=== PATIENT | male | born 1970 | race Hispanic/Latino ===

== ENCOUNTER 2018-12-19 11:50 | Emergency (ER) | payer SELFPAY ==
[2018-12-19 12:12] VITALS: BP 135/89
--- NOTE | 2018-12-19 12:15 | Emergency Department Report ---
ED Back Pain/Injury HPI - General Chief Complaint: Back Pain/Injury Stated Complaint: LOWER BACK PAIN Time Seen by Provider: 12/19/18 12:10 Source: patient Limitations: No Limitations - History of Present Illness Initial Comments: Pt is a 48 yo male who presents to the ED with c/o chronic lower back that began bothering him last night. The patient states he has been doing heavy lifting. states he has pain radiating down the right leg which is typical of his chronic back pain. denies numbness or weakness, no bowel/bladder incontinence. denies any new fall, injury, or trauma. pt states he cant have surgery on his known herniated discs due to heart problems. Pt states he is from [place] and sees an orthopedic in [place]. PMHx PAD, HTN, CHF. +smoker, non drinker, no drug use. no fall, trauma, or injury. - Related Data Previous Rx's Medication Instructions Recorded Last Taken Type Cyclobenzaprine [Flexeril] 10 mg PO QHS PRN #12 tablet 12/19/18 Unknown Rx Prednisone [predniSONE 5 mg (6-Day 5 mg PO .TAPER #1 tab.ds.pk 12/19/18 Unknown Rx Pack, 21 Tabs)] Allergies Allergy/AdvReac Type Severity Reaction Status Date / Time phenobarbital Allergy Shortness Verified 12/19/18 11:52 of Breath Sulfa (Sulfonamide Allergy Hives Verified 12/19/18 11:52 Antibiotics) ED Review of Systems ROS: Stated complaint: LOWER BACK PAIN Other details as noted in HPI Comment: All other systems reviewed and negative ED Past Medical Hx - Past Medical History Hx Congestive Heart Failure: Yes Hx COPD: Yes Additional medical history: herniated disc, PAD - Surgical History Hx Appendectomy: Yes Additional Surgical History: hernia x3 - Medications Home Medications: Home Medications Medication Instructions Recorded Confirmed Last Taken Type Cyclobenzaprine [Flexeril] 10 mg PO QHS PRN #12 tablet 12/19/18 Unknown Rx Prednisone [predniSONE 5 mg (6-Day 5 mg PO .TAPER #1 tab.ds.pk 12/19/18 Unknown Rx Pack, 21 Tabs)] ED Physical Exam - General Limitations: No Limitations General appearance: alert, in no apparent distress - Head Head exam: Present: atraumatic, normocephalic - Eye Eye exam: Present: normal appearance. Absent: PERRL - Respiratory Respiratory exam: Present: normal lung sounds bilaterally. Absent: respiratory distress, wheezes, rales, rhonchi, stridor, chest wall tenderness, accessory muscle use, decreased breath sounds, prolonged expiratory - Cardiovascular Cardiovascular Exam: Present: regular rate, normal rhythm, normal heart sounds. Absent: systolic murmur, diastolic murmur, rubs, gallop - Back Exam Back exam: Present: normal inspection, full ROM, paraspinal tenderness (bilateral lumbar paraspinal muscular TTP), other (no midline C-spine, T-spine, or L-spine tenderness, no step offs, no deformities ). Absent: vertebral tenderness - Neurological Exam Neurological exam: Present: alert, oriented X3, normal gait. Absent: motor sensory deficit - Psychiatric Psychiatric exam: Present: normal affect - Skin Skin exam: Present: warm, dry, intact ED Course Vital Signs 12/19/18 12:10 Temperature 98.1 F Pulse Rate 97 H Respiratory 20 Rate Blood Pressure 135/89 [Right] O2 Sat by Pulse 95 Oximetry ED Medical Decision Making - Medical Decision Making pt presents with chronic back pain. no new injury, fall, or trauma, no numbness or weakness. pt has paraspinal muscular lumbar ttp, no midline c-spine, t-spine, or l-spine tenderness, pt given steroid pack and muscle relaxer. pt requested narcotics but discussed with pt in detail that narcotics are not appropriate from the emergency room for chronic back issues. advised pt to please see his orthopedic and a primary care doctor as soon as possible. only take muscle relaxer as needed and do not drive or operate heavy machinery. return to the emergency room for any new or worsening symptoms. may use rest, ice, heating pad, epsom salt bath. Critical care attestation.: If time is entered above; I have spent that time in minutes in the direct care of this critically ill patient, excluding procedure time. ED Disposition Clinical Impression: Chronic lower back pain Qualifiers: Back pain laterality: bilateral Sciatica presence: with sciatica Sciatica laterality: sciatica of right side Qualified Code(s): M54.41 - Lumbago with sciatica, right side Disposition: TO HOME OR SELFCARE Is pt being admited?: No Does the pt Need Aspirin: No Condition: Stable Instructions: Chronic Back Pain (ED) Additional Instructions: Please follow up with an orthopedic spine doctor and primary care doctor in the next 2-3 days. Take medication as prescribed. Do not drive or operate heavy machinery while taking muscle relaxer. Use ice, rest, heat, epsom salt bath. Return to the emergency room for any new or worsening symptoms. Prescriptions: Cyclobenzaprine [Flexeril] 10 mg PO QHS PRN #12 tablet PRN Reason: Muscle Spasm Prednisone [predniSONE 5 mg (6-Day Pack, 21 Tabs)] 5 mg PO .TAPER #1 tab.ds.pk Referrals: [facility] MD CARLY [Primary Care Provider] - 2-3 Days ETIENNE VILLELA MD [Staff Physician] - 2-3 Days Time of Disposition: 12:18 Print Language: BENINESE
== END 2018-12-19 12:38 | disposition home or self-care (01) ==
LOC: ED 11:50
DX: G89.29 Other chronic pain (principal); M54.5 Low back pain; J44.9 Chronic obstructive pulmonary disease, unspecified; I50.9 Heart failure, unspecified; Z90.89 Acquired absence of other organs; Z88.8 Allergy status to other drugs, medicaments and biological substances; Z88.2 Allergy status to sulfonamides